=== PATIENT | female | born 1990 | race African-American/Black ===

== ENCOUNTER 2016-08-25 20:08 | Inpatient (IN) | payer SELFPAY ==
[~2016-08-25] VITALS: Ht 157.5 cm; Wt 60.8 kg
[~2016-08-25 20:08] MED LIST: DOXY100T PO; PERC7.5T13 PO; Z.0.NO CURRENT MEDS
[2016-08-25 20:10] VITALS: BP 141/57; PULSE 100; RESP 16; TEMP 99.3; O2SAT 98
[2016-08-25] MEDS ORDERED: SODIUM CHLOR 0.9% 1000 ML INJ 1,000 ML IV ONE ×2 (21:56→23:45)
[2016-08-25] MEDS ORDERED: ONDANSETRON HCL 4 MG/2 ML VIAL IV PUSH ONE (22:00)
[2016-08-25] MEDS ORDERED: HYDROmorphone HCL PF 1 MG/ML VIAL IVS ONE (22:00)
[2016-08-25 22:32] LABS: AUTOMATED NEUTROPHIL # 15.7 TH/MM3 (1.8-7.7); BASOPHIL % 0.2 % (0.0-2.0); HEMATOCRIT 33.9 % (35.0-46.0); LYMPH % 6.7 % (9.0-44.0); LYMPHOCYTE # 1.2 TH/MM3 (1.0-4.8); MEAN CELL VOLUME 74.4 FL (80.0-100.0); MEAN CORPUSCULAR HEMOGLOBIN 23.7 PG (27.0-34.0); MEAN CORPUSCULAR HGB CONC 31.9 % (32.0-36.0); MONO % 3.3 % (0.0-8.0); NEUT % 89.8 % (16.0-70.0); PLATELET COUNT 234 TH/MM3 (150-450); RED BLOOD COUNT 4.55 MIL/MM3 (4.00-5.30); WHITE BLOOD COUNT 17.5 TH/MM3 (4.0-11.0)
[2016-08-25 22:38] LABS: BLOOD, URINE MOD (NEG); COMMENT (UR) CULTURE INDICATED; CULTURE IF INDICATED CULTURE INDICATED; GLUCOSE,URINE NEG (NEG); KETONE, URINE TRACE mg/dL (NEG); MUCUS URINE FEW /lpf (OCC); NITRITE,URINE NEG (NEG); SQUAMOUS EPITHELIAL CELL URINE 3 /hpf (0-5); URINE COLOR YELLOW (YELLW/STRAW)
[2016-08-25 22:44] LABS: HEMO FLAGS AUTO DIFF
[2016-08-25] MEDS ORDERED: IOHEXOL 350 MG/ML 10 ML VIAL (for RAD DIAG) IV ONE (22:53)
[2016-08-25 23:04] LABS: ALT (GPT) 14 U/L (10-53); ANION GAP 9 MEQ/L (5-15); AST (GOT) 13 U/L (15-37); BICARBONATE 25.2 MEQ/L (21.0-32.0); BLOOD UREA NITROGEN 7 MG/DL (7-18); CHLORIDE 105 MEQ/L (98-107); GLOMERULAR FILTRATION RATE 109 ML/MIN (>89); POTASSIUM 3.5 MEQ/L (3.5-5.1); SODIUM (NA) 139 MEQ/L (136-145)
[2016-08-25 23:06] LABS: ALKALINE PHOSPHATASE 69 U/L (45-117); TOTAL BILIRUBIN ADULT 0.6 MG/DL (0.2-1.0)
[2016-08-25 23:14] LABS: PLATELET ESTIMATE SMEAR NORMAL (NORMAL); PLATELET MORPHOLOGY NORMAL (NORMAL); SCAN/DIFF AUTO DIFF CONFIRMED
--- NOTE | 2016-08-25 23:16 | RADRPT ---
EXAM DATE/TIME: 08/25/2016 22:49 [facility] COMPARISON: CT ABDOMEN & PELVIS W CONTRAST, February 05, 2010, 5:39. INDICATIONS : Genital and buttock pain radiating up back. IV CONTRAST: 91 cc Omnipaque 350 (iohexol) IV ORAL CONTRAST: No oral contrast ingested. RADIATION DOSE: 9.96 CTDIvol (mGy) MEDICAL HISTORY : None SURGICAL HISTORY : Bladder corrective surgery as baby. ENCOUNTER: Initial ACUITY: 1 day PAIN SCALE: 10/10 LOCATION: Bilateral lower quadrant TECHNIQUE: Volumetric scanning of the abdomen and pelvis was performed. Using automated exposure control and ad justment of the mA and/or kV according to patient size, radiation dose was kept as low as reasonably achievable to obtain optimal diagnostic quality images. FINDINGS: LOWER LUNGS: The visualized lower lungs are clear. LIVER: Homogeneous density without lesion. There is no dilation of the biliary tree. No calcified gallston es. SPLEEN: Normal size without lesion. PANCREAS: Within normal limits. KIDNEYS: Normal in size and shape. There is no mass, stone or hydronephrosis. ADRENAL GLANDS: Within normal limits. VASCULAR: There is no aortic aneurysm. BOWEL/MESENTERY: The stomach, small bowel, and colon demonstrate no acute abnormality. There is no free intraperitone al air or fluid. ABDOMINAL WALL: Within normal limits. RETROPERITONEUM: There is no lymphadenopathy. BLADDER: No wall thickening or mass. REPRODUCTIVE: The uterus is enlarged measuring 7.2 x 6.4 cm in oblique axial dimension. The endometrial cavity is prominent. Within the endometrial cavity, there is homogeneous intermediate density masslike area wh ich measures 3.5 x 2.9 cm. There is a moderate amount of free fluid in the cul-de-sac measuring up t o 2 cm in thickness. The adnexal vascular structures are prominent, but similar in appearance to a p rior CT scan 2009. INGUINAL: There is no lymphadenopathy or hernia. MUSCULOSKELETAL: Within normal limits for patient age. CONCLUSION: Abnormal appearance to the uterus with uterine enlargement and a greater than 3 cm homogeneous massli ke abnormality within the endometrial cavity. There is also moderate free fluid in the cul-de-sac. Terry Lopez MD on August 25, 2016 at 23:07 Board Certified Radiologist. This report was verified electronically.
[2016-08-25] MEDS ORDERED: cefTAZidime INJ 2,000 MG in SODIUM CHLORIDE 0.9% INJ 100 ML IV ONE (23:30)
[2016-08-25] MEDS ORDERED: DOXYCYCLINE INJ 100 MG in SODIUM CHLORIDE 0.9% INJ 100 ML IV ONE (23:30)
[2016-08-26] VITALS (7 sets, daily range): BP systolic 95–106; BP diastolic 51–66; PULSE 79–119; RESP 16–18; TEMP 96.1–98.9; O2SAT 98–100
[2016-08-26] MEDS ORDERED: ACETAMINOPHEN 325 MG TAB PO ONE (00:15)
[2016-08-26] MEDS ORDERED: HYDROmorphone HCL PF 1 MG/ML VIAL IV PUSH ONE (00:15)
--- NOTE | 2016-08-26 00:26 | HHI.HP ---
HPI Chief Complaint Abdominal and pelvic pain Date Seen: Aug 26, 2016 Travel History International Travel<30 Days: No Contact w/Intl Traveler<30Days: No Known Affected Area: No History of Present Illness HPI Patient is 25-year-old black female A1 who has developed 1 day onset of severe lower abdominal pain. States her last period started just several days ago with a 1 day of light bleeding and then it stopped, and was doing okay yesterday but today the pain began and is worsened throughout the day. Pain is worsened by moving around or laying flat on her back. She states she said possibly a fever at home but is noted certainly chills. She states that she had a case of PID in the past but this is much worse than that case. She denies nausea vomiting Para: 0 : 1 Last Menstrual Period: Aug 24, 2016 Miscarriage: 1 History Past Medical History Narrative Medical Patient states that she had a case of PID in the past. And that this problem caused her to be in the hospital for some time with for IV antibiotics Obstetric History Obstetric History She is been 1 time and miscarried in the first trimester with no D&C Family History Family History: Negative Social History Alcohol Use: No Tobacco Use: Yes Substance Abuse: No Allergies-Medications (Allergen,Severity, Reaction): Coded Allergies: Lactose (Unverified Allergy, Unknown, 08/25/16) Home Meds No Active Prescriptions or Reported Meds Review of Systems General / Constitutional: Fever, Chills Gastrointestinal: Abdominal Pain Physical Exam Narrative GENERAL: Well-nourished, well-developed patient. In moderate distress from pain SKIN: Warm and dry. HEAD: Normocephalic and atraumatic. EYES: No scleral icterus. No injection or drainage. ENT: No nasal drainage noted. Mucous membranes pink. Airway patent. NECK: Supple, trachea midline. No JVD. CARDIOVASCULAR: tachy without murmurs, gallops, or rubs. RESPIRATORY: Breath sounds equal bilaterally. No accessory muscle use. BREASTS: Bilateral exam showed no masses , no retractions, no nipple discharge. ABDOMEN/GI: Abdomen guarding with 3-4 + pain lower > upper quads with + rebound noted , bowel sounds present, no masses noted GENITOURINARY: External Genitalia: intact and normal in appearance BUS glands: [-] Cervix: + CMT uterus 3+ tender AF , adnexa 3+ tender + rebound no mass EXTREMITIES: No cyanosis or edema. BACK: Nontender without obvious deformity. No CVA tenderness. NEUROLOGICAL: Awake and alert. Motor and sensory grossly within normal limits. Five out of 5 muscle strength in all muscle groups. Normal speech. Data Data Orders Complete Blood Count With Diff (08/25/16 21:56) Comprehensive Metabolic Panel (08/25/16 21:56) Gc And Chlamydia Pcr (08/25/16 21:56) Wet Prep Profile (08/25/16 21:56) Urinalysis - C+S If Indicated (08/25/16 21:56) Iv Access Insert/Monitor (08/25/16 21:56) Ecg Monitoring (08/25/16 21:56) Sodium Chlor 0.9% 1000 Ml Inj (Ns 1000 M (08/25/16 21:56) Hydromorphone Pf Inj (Dilaudid Pf Inj) (08/25/16 22:00) Ed Urine Pregnancytest Poc (08/25/16 21:56) Lipase (08/25/16 21:56) Ondansetron Inj (Zofran Inj) (08/25/16 22:00) Lactic Acid (08/25/16 21:56) Ct Abd/Pel W Iv Contrast(Rout) (08/25/16 ) Urine Culture (08/25/16 22:10) Iohexol 350 Inj (Omnipaque 350 Inj) (08/25/16 22:53) Doxycycline Inj (Vibramycin Inj) (08/25/16 23:30) Ceftazidime Inj (Fortaz Inj) (08/25/16 23:30) Sodium Chlor 0.9% 1000 Ml Inj (Ns 1000 M (08/25/16 23:45) Admit Order (Ed Use Only) (08/26/16 00:01) Hydromorphone Pf Inj (Dilaudid Pf Inj) (08/26/16 00:15) Acetaminophen (Tylenol) (08/26/16 00:15) Labs Laboratory Tests Test 08/25/16 08/25/16 22:10 22:45 White Blood Count 17.5 Red Blood Count 4.55 Hemoglobin 10.8 Hematocrit 33.9 Mean Corpuscular Volume 74.4 Mean Corpuscular Hemoglobin 23.7 Mean Corpuscular Hemoglobin 31.9 Concent Red Cell Distribution Width 18.0 Platelet Count 234 Mean Platelet Volume 8.8 Neutrophils (%) (Auto) 89.8 Lymphocytes (%) (Auto) 6.7 Monocytes (%) (Auto) 3.3 Eosinophils (%) (Auto) 0.0 Basophils (%) (Auto) 0.2 Neutrophils # (Auto) 15.7 Lymphocytes # (Auto) 1.2 Monocytes # (Auto) 0.6 Eosinophils # (Auto) 0.0 Basophils # (Auto) 0.0 CBC Comment AUTO DIFF Differential Comment AUTO DIFF CONFIRMED Platelet Estimate NORMAL Platelet Morphology Comment NORMAL Urine Color YELLOW Urine Turbidity CLEAR Urine pH 8.0 Urine Specific [place] 1.019 Urine Protein NEG Urine Glucose (UA) NEG Urine Ketones TRACE Urine Occult Blood MOD Urine Nitrite NEG Urine Bilirubin NEG Urine Urobilinogen LESS THAN 2.0 Urine Leukocyte Esterase LARGE Urine RBC 4 Urine WBC 21 Urine Squamous Epithelial 3 Cells Urine Mucus FEW Microscopic Urinalysis Comment CULTURE INDICATED Sodium Level 139 Potassium Level 3.5 Chloride Level 105 Carbon Dioxide Level 25.2 Anion Gap 9 Blood Urea Nitrogen 7 Creatinine 0.78 Estimat Glomerular Filtration 109 Rate Random Glucose 109 Lactic Acid Level 0.9 Calcium Level 8.7 Total Bilirubin 0.6 Aspartate Amino Transf 13 (AST/SGOT) Alanine Aminotransferase 14 (ALT/SGPT) Alkaline Phosphatase 69 Total Protein 7.6 Albumin 3.7 Lipase 75 Clue Cells (Wet Prep) PRESENT Vaginal Trichomonas (Wet Prep) NONE SEEN Vaginal Yeast (Wet Prep) NONE SEEN Date/Time Procedure Status Source Growth 08/25/16 22:10 Urine Culture Received Urine Clean Catch Pending CT scan --enlarged uterus with internal echo , some free fluid in pelvis Assessment/Plan Assessment and Plan 25-year-old black female with pelvic inflammatory disease, severe pelvic abdominal pain Plan to begin the patient on IV antibiotic therapy[ampicillin gentamicin and clindamycin] Pain medication when necessary, and plan to continue inpatient therapy until pain is significantly improved that she's been afebrile for 24 hours Dave aMnrique II, MD Aug 26, 2016 00:26
[2016-08-26] MEDS ORDERED: Gentamicin Consult Pharmacy 1 EA XX SCH (00:30)
[2016-08-26] MEDS ORDERED: SODIUM CHLORIDE 0.9% FLUSH 5 ML FLUSH FLUSH PRN ×2 (00:30→00:45)
[2016-08-26] MEDS ORDERED: ACETAMINOPHEN 325 MG TAB PO PRN ×2 (00:30→00:45)
[2016-08-26] MEDS ORDERED: SODIUM CHLOR 0.45% 1000 ML INJ 1,000 ML IV SCH (00:40)
--- NOTE | 2016-08-26 00:44 | PD ---
HPI Chief Complaint: Abdominal pain Time Seen by Provider: 21:38 Travel History International Travel<30 days: No Contact w/Intl Traveler<30days: No Traveled to known affect area: No History of Present Illness HPI 25-year-old female arrives complaining of pain in the vagina, back, abdomen generally which is severe and has been present for about 12 hours or so. Onset woke her up from sleep during a morning nap. She tried taking a bath which did not help. The pain is constant. Possible subjective fever is reported. She denies similar prior events. She denies vomiting. Last menstruation is evidently right now however she is bleeding much less then typical for her. Urination is painful. She denies significant vaginal discharge. PFSH Past Medical History ADHD: No Cardiovascular Problems: No Diabetes: No Diminished Hearing: No Genitourinary: No Musculoskeletal: No Neurologic: No Psychiatric: Yes (HX INPT STAYS) Respiratory: No Immunizations Current: Yes Migraines: No Seizures: No Thyroid Disease: No Ulcer: No Influenza Vaccination: No ?: Not LMP: 08/23/16 : 1 Para: 0 Past Surgical History Appendectomy: No Cholecystectomy: No Genitourinary Surgery: Yes (CORRECTIVE BLADDER SURGERY BABY) Other Surgery: No Family History Family History: Negative Social History Alcohol Use: No Tobacco Use: Yes Substance Use: No Allergies-Medications (Allergen,Severity, Reaction): Coded Allergies: Lactose (Unverified Allergy, Unknown, 08/25/16) Reported Meds & Prescriptions Reported Meds & Active Scripts Active No Active Prescriptions or Reported Medications Review of Systems Except as stated in HPI: all other systems reviewed are Neg Genitourinary: Positive: Pelvic Pain Physical Exam Narrative GENERAL: 25-year-old female mild to moderate distress secondary to pain and/or fever SKIN: Warm and dry. HEAD: Atraumatic. Normocephalic. EYES: Pupils equal and round. No scleral icterus. No injection or drainage. ENT: No nasal bleeding or discharge. Mucous membranes pink and moist. NECK: Trachea midline. No JVD. CARDIOVASCULAR: Regular rate and rhythm. No murmur appreciated. RESPIRATORY: No accessory muscle use. Clear to auscultation. Breath sounds equal bilaterally. GASTROINTESTINAL: Rebound tenderness present. Tenderness to palpation suprapubic abdomen GENITOURINARY: Exquisite tenderness to palpation of the cervix. Within the vaginal vault there is scant brownish reddish discharge. MUSCULOSKELETAL: No obvious deformities. No clubbing. No cyanosis. No edema. NEUROLOGICAL: Awake and alert. No obvious cranial nerve deficits. Motor grossly within normal limits. Normal speech. PSYCHIATRIC: Appropriate mood and affect; insight and judgment normal. Data Data Last Documented VS Vital Signs Date Time Temp Pulse Resp B/P Pulse Ox O2 Delivery O2 Flow Rate FiO2 08/25/16 21:44 100 16 08/25/16 20:10 99.3 141/57 98 Orders Complete Blood Count With Diff (08/25/16 21:56) Comprehensive Metabolic Panel (08/25/16 21:56) Gc And Chlamydia Pcr (08/25/16 21:56) Wet Prep Profile (08/25/16 21:56) Urinalysis - C+S If Indicated (08/25/16 21:56) Iv Access Insert/Monitor (08/25/16 21:56) Ecg Monitoring (08/25/16 21:56) Sodium Chlor 0.9% 1000 Ml Inj (Ns 1000 M (08/25/16 21:56) Hydromorphone Pf Inj (Dilaudid Pf Inj) (08/25/16 22:00) Ed Urine Pregnancytest Poc (08/25/16 21:56) Lipase (08/25/16 21:56) Ondansetron Inj (Zofran Inj) (08/25/16 22:00) Lactic Acid (08/25/16 21:56) Ct Abd/Pel W Iv Contrast(Rout) (08/25/16 ) Urine Culture (08/25/16 22:10) Iohexol 350 Inj (Omnipaque 350 Inj) (08/25/16 22:53) Doxycycline Inj (Vibramycin Inj) (08/25/16 23:30) Ceftazidime Inj (Fortaz Inj) (08/25/16 23:30) Sodium Chlor 0.9% 1000 Ml Inj (Ns 1000 M (08/25/16 23:45) Admit Order (Ed Use Only) (08/26/16 00:01) Hydromorphone Pf Inj (Dilaudid Pf Inj) (08/26/16 00:15) Acetaminophen (Tylenol) (08/26/16 00:15) Labs Laboratory Tests Test 08/25/16 08/25/16 22:10 22:45 White Blood Count 17.5 TH/MM3 Red Blood Count 4.55 MIL/MM3 Hemoglobin 10.8 GM/DL Hematocrit 33.9 % Mean Corpuscular Volume 74.4 FL Mean Corpuscular Hemoglobin 23.7 PG Mean Corpuscular Hemoglobin 31.9 % Concent Red Cell Distribution Width 18.0 % Platelet Count 234 TH/MM3 Mean Platelet Volume 8.8 FL Neutrophils (%) (Auto) 89.8 % Lymphocytes (%) (Auto) 6.7 % Monocytes (%) (Auto) 3.3 % Eosinophils (%) (Auto) 0.0 % Basophils (%) (Auto) 0.2 % Neutrophils # (Auto) 15.7 TH/MM3 Lymphocytes # (Auto) 1.2 TH/MM3 Monocytes # (Auto) 0.6 TH/MM3 Eosinophils # (Auto) 0.0 TH/MM3 Basophils # (Auto) 0.0 TH/MM3 CBC Comment AUTO DIFF Differential Comment AUTO DIFF CONFIRMED Platelet Estimate NORMAL Platelet Morphology Comment NORMAL Urine Color YELLOW Urine Turbidity CLEAR Urine pH 8.0 Urine Specific [place] 1.019 Urine Protein NEG mg/dL Urine Glucose (UA) NEG mg/dL Urine Ketones TRACE mg/dL Urine Occult Blood MOD Urine Nitrite NEG Urine Bilirubin NEG Urine Urobilinogen LESS THAN 2.0 MG/DL Urine Leukocyte Esterase LARGE Urine RBC 4 /hpf Urine WBC 21 /hpf Urine Squamous Epithelial 3 /hpf Cells Urine Mucus FEW /lpf Microscopic Urinalysis Comment CULTURE INDICATED Sodium Level 139 MEQ/L Potassium Level 3.5 MEQ/L Chloride Level 105 MEQ/L Carbon Dioxide Level 25.2 MEQ/L Anion Gap 9 MEQ/L Blood Urea Nitrogen 7 MG/DL Creatinine 0.78 MG/DL Estimat Glomerular Filtration 109 ML/MIN Rate Random Glucose 109 MG/DL Lactic Acid Level 0.9 mmol/L Calcium Level 8.7 MG/DL Total Bilirubin 0.6 MG/DL Aspartate Amino Transf 13 U/L (AST/SGOT) Alanine Aminotransferase 14 U/L (ALT/SGPT) Alkaline Phosphatase 69 U/L Total Protein 7.6 GM/DL Albumin 3.7 GM/DL Lipase 75 U/L Clue Cells (Wet Prep) PRESENT Vaginal Trichomonas (Wet Prep) NONE SEEN Vaginal Yeast (Wet Prep) NONE SEEN Chlamydia trachomatis DNA NOT DETECTED (PCR) Neisseria gonorrhoeae DNA DETECTED (PCR) MDM Medical Decision Making Medical Screen Exam Complete: Yes Emergency Medical Condition: Yes Medical Record Reviewed: Yes Differential Diagnosis IUP, UTI, ectopic , ov torsion, appendicitis, TOA, cervicitis, BV, Trichomoniasis, ov cyst, hernia, mittelschmerz, pain from menstruation, pelvic inflammatory disease Narrative Course CBC & BMP Diagram 08/25/16 22:10 Lactic acid 0.9 LFTs normal Lipase normal Urinalysis consistent with UTI Wet prep positive for bacterial vaginosis Neisseria gonorrhea PCR detected The patient has received doxycycline and Ceftazidime. She'll be admitted for IV fluids pain control and additional IV antibiotics for PID. Case discussed with Dr. Manrique of obstetrics service. Critical Care Narrative Aggregate critical care time was 35 minutes. Time to perform other separately billable procedures was not included in the critical care time. My time did not include minutes spent treating any other patients simultaneously or on activities that did not directly contribute to the patient's treatment. The services I provided to this patient were to treat and/or prevent clinically significant deterioration that could result in: Septic Shock, loss of reproductive organs I provided critical care services requiring my management, as noted below: Chart data review, documentation time, medication orders and management, vital sign assessments/reviewing monitor data, ordering and reviewing lab tests, ordering and interpreting/reviewing x-rays and diagnostic studies, care of the patient and discussion of the patient with the admitting physicians. Sepsis Criteria SIRS Criteria (2 or more): Heart rate over 90, RR > 20 or PaCO2 < 32, WBC > 27307, < 4000 or > 10% bands Sepsis Criteria (SIRS+source): Infect source susp/known Diagnosis Primary Impression: Sepsis Qualified Code: A41.9 - Sepsis, due to unspecified organism Additional Impression: Pelvic inflammatory disease (PID) Admitting Information Admitting Physician Requests: Admit Scripts No Active Prescriptions or Reported Meds Zach Moncada MD Aug 26, 2016 00:44
[2016-08-26] MEDS ORDERED: ACETAMINOPHEN/HYDROcodone 325 MG/5 MG TAB PO PRN (00:45)
[2016-08-26] MEDS ORDERED: MORPHINE SULFATE 4 MG/ML INJ IV PRN (00:45)
[2016-08-26] MEDS ORDERED: ONDANSETRON HCL 4 MG/2 ML VIAL IV PRN (00:45)
[2016-08-26 00:55] LABS: CHLAMYDIA PCR NOT DETECTED (NOT DETECT); NEISSERIA PCR DETECTED (NOT DETECT)
[2016-08-26] MEDS ORDERED: AMPICILLIN INJ 2,000 MG in SODIUM CHLORIDE 0.9% INJ 100 ML IV SCH (01:00)
[2016-08-26] MEDS: GENTAMICIN INJ 325 MG in SODIUM CHLORIDE 0.9% INJ 100 ML IV SCH (01:28)
[2016-08-26] MEDS: SODIUM CHLOR 0.45% 1000 ML INJ 1,000 ML IV SCH ×2 (01:28→10:25)
[2016-08-26] MEDS: CLINDAMYCIN INJ 900 MG in SODIUM CHLORIDE 0.9% INJ 100 ML IV SCH ×3 (02:44→17:51)
[2016-08-26] MEDS ORDERED: GENTAMICIN INJ 100 MG in SODIUM CHLORIDE 0.9% INJ 100 ML IV ONE (02:45)
[2016-08-26] MEDS ORDERED: CLINDAMYCIN INJ 900 MG in SODIUM CHLORIDE 0.9% INJ 100 ML IV SCH (02:45)
[2016-08-26] MEDS: MORPHINE SULFATE 4 MG/ML INJ IV PRN ×3 (02:50→10:25)
[2016-08-26] MEDS: ONDANSETRON HCL 4 MG/2 ML VIAL IV PRN ×2 (02:51→10:53)
[2016-08-26] MEDS: AMPICILLIN INJ 2,000 MG in SODIUM CHLORIDE 0.9% INJ 100 ML IV SCH ×4 (04:14→23:21)
[2016-08-26] MEDS ORDERED: SODIUM CHLORIDE 0.9% FLUSH 5 ML FLUSH FLUSH SCH (09:00)
[2016-08-26] MEDS: SODIUM CHLORIDE 0.9% FLUSH 5 ML FLUSH FLUSH SCH (10:24)
[2016-08-26] MEDS: ACETAMINOPHEN/HYDROcodone 325 MG/5 MG TAB PO PRN ×3 (14:00→22:48)
--- NOTE | 2016-08-26 23:49 | RADRPT ---
EXAM DATE/TIME: 08/26/2016 22:07 [facility] COMPARISON: CT ABDOMEN & PELVIS W CONTRAST, August 25, 2016, 22:49. INDICATIONS : Pelvic pain. MEDICAL HISTORY : . Miscarriage. SURGICAL HISTORY : Bladder surgery as a baby. ENCOUNTER: Initial ACUITY: 1 day PAIN SCORE: 9/10 LOCATION: Bilateral pelvis MEASUREMENTS: UTERUS: 9.8 x 6.0 x 5.9 cm ENDOMETRIAL STRIPE: 9 mm RIGHT OVARY: 5.7 x 2.4 x 3.0 cm LEFT OVARY: 4.8 x 3.1 x 2.6 cm FINDINGS: UTERUS: The uterus has a homogeneous echogenicity throughout the myometrium. The cervix appears to be mildly prominent at 5.2 cm. The uterus is retroflexed in position. There appears to be a hyperechoic rounded density within the endometrial cavity measuring 3.3 x 2.7 cm. RIGHT OVARY: Ovary contains no mass or significant cystic lesion. A few tiny follicular cysts. LEFT OVARY: Ovary contains no mass or significant cystic lesion. A few tiny follicular cysts. MISCELLANEOUS: No free fluid. CONCLUSION: 1. Abnormal appearance of the endometrial cavity with a hyperechoic rounded area within the endometri al cavity measuring 3.3 x 2.7 cm. D&C may be worthy of consideration. 2. Retroverted uterus with mildly prominent cervix.. Shree Solorzano MD on August 26, 2016 at 23:44 Board Certified Radiologist. This report was verified electronically.
[2016-08-27] VITALS: BP 99/54; PULSE 81; RESP 18; TEMP 96.8; O2SAT 99
[2016-08-27] MEDS: MORPHINE SULFATE 4 MG/ML INJ IV PRN ×2 (00:13→11:02)
[2016-08-27] MEDS: SODIUM CHLORIDE 0.9% FLUSH 5 ML FLUSH FLUSH SCH ×3 (00:13→22:00)
[2016-08-27] MEDS: GENTAMICIN INJ 325 MG in SODIUM CHLORIDE 0.9% INJ 100 ML IV SCH (03:02)
[2016-08-27] MEDS: CLINDAMYCIN INJ 900 MG in SODIUM CHLORIDE 0.9% INJ 100 ML IV SCH ×3 (03:30→17:54)
[2016-08-27 04:00] VITALS: BP 101/50; PULSE 75; RESP 18; TEMP 97.3; O2SAT 100
[2016-08-27] MEDS: AMPICILLIN INJ 2,000 MG in SODIUM CHLORIDE 0.9% INJ 100 ML IV SCH ×4 (04:00→21:07)
[2016-08-27] MEDS: SODIUM CHLOR 0.45% 1000 ML INJ 1,000 ML IV SCH ×2 (06:26→16:20)
[2016-08-27 08:00] VITALS: BP 101/58; PULSE 74; RESP 20; TEMP 97.6; O2SAT 100
[2016-08-27] MEDS: ONDANSETRON HCL 4 MG/2 ML VIAL IV PRN (08:49)
[2016-08-27 08:50] LABS: AUTOMATED NEUTROPHIL # 11.5 TH/MM3 (1.8-7.7); BASOPHIL % 0.2 % (0.0-2.0); EOSINOPHIL # 0.1 TH/MM3 (0-0.4); HEMATOCRIT 29.4 % (35.0-46.0); LYMPHOCYTE # 1.5 TH/MM3 (1.0-4.8); MEAN CELL VOLUME 75.1 FL (80.0-100.0); MEAN CORPUSCULAR HEMOGLOBIN 23.6 PG (27.0-34.0); MEAN CORPUSCULAR HGB CONC 31.4 % (32.0-36.0); MONO % 5.8 % (0.0-8.0); PLATELET COUNT 193 TH/MM3 (150-450); RED BLOOD COUNT 3.91 MIL/MM3 (4.00-5.30)
[2016-08-27] MEDS: ACETAMINOPHEN/HYDROcodone 325 MG/5 MG TAB PO PRN (08:50)
[2016-08-27 08:53] LABS: HEMO FLAGS AUTO DIFF
[2016-08-27 09:39] LABS: ACANTHOCYTES OCC (NORMAL); SCAN/DIFF AUTO DIFF CONFIRMED
--- NOTE | 2016-08-27 09:44 | HHI.FPPN ---
Subjective Remarks 25 year old female with with lower abdominal pain. She was found to have gonorrhea and bacterial vaginosis, with suspected pelvic inflammatory disease. This morning she continues to have significant lower abdominal pain, 8/10 without pain medication and 5/10 after pain medication. It is located in the lower left, lower right, and lower mid-abdomen. She has nausea but no vomiting. She feels hot but has been afebrile. She reports no vaginal bleeding or discharge. She has poor appetite. No other events overnight. She reports mild improvement overall since admission. (Nate Pacheco MD R2) Objective Vitals Vital Signs Date Time Temp Pulse Resp B/P Pulse Ox O2 Delivery O2 Flow Rate FiO2 08/27/16 08:00 97.6 74 20 101/58 100 08/27/16 04:00 97.3 75 18 101/50 100 08/27/16 00:00 96.8 81 18 99/54 99 08/26/16 22:19 96.9 81 18 95/52 98 08/26/16 16:00 96.1 79 18 99/51 99 08/26/16 12:00 97.6 90 18 106/66 99 08/26/16 10:30 14 08/26/16 09:46 98.7 66 18 98/60 98 08/26/16 09:40 98.9 96 16 99/57 98 I/O 08/26/16 08/26/16 08/26/16 08/27/16 08/27/16 08/27/16 07:00 15:00 23:00 07:00 15:00 23:00 Intake Total 480 ml 240 ml Balance 480 ml 240 ml Intake Oral 480 ml 240 ml # Voids 1 2 (Nate Pacheco MD R2) Result Diagram: 08/28/16 0800 08/28/16 0800 Imaging Last 72 hours Impressions Pelvis Ultrasound 08/26/16 0000 Signed Impressions: Service Date/Time: Friday, August 26, 2016 22:07 - CONCLUSION: 1. Abnormal appearance of the endometrial cavity with a hyperechoic rounded area within the endometrial cavity measuring 3.3 x 2.7 cm. D&C may be worthy of consideration. 2. Retroverted uterus with mildly prominent cervix.. Shree Solorzano MD Abdomen/Pelvis CT 08/25/16 0000 Signed Impressions: Service Date/Time: Thursday, August 25, 2016 22:49 - CONCLUSION: Abnormal appearance to the uterus with uterine enlargement and a greater than 3 cm homogeneous masslike abnormality within the endometrial cavity. There is also moderate free fluid in the cul-de-sac. Terry Lopez MD Objective Remarks GENERAL: Well-nourished, well-developed patient. In moderate distress from pain SKIN: Warm and dry. HEAD: Normocephalic and atraumatic. EYES: No scleral icterus. No injection or drainage. ENT: No nasal drainage noted. Mucous membranes pink. Airway patent. NECK: Supple, trachea midline. No JVD. CARDIOVASCULAR: tachy without murmurs, gallops, or rubs. RESPIRATORY: Breath sounds equal bilaterally. No accessory muscle use. BREASTS: Bilateral exam showed no masses , no retractions, no nipple discharge. ABDOMEN/GI: Pain on palpation of the lower mid, lower left, and lower right quadrants, no rebound tenderness, voluntary guarding, no involuntary guarding. EXTREMITIES: No cyanosis or edema. BACK: Nontender without obvious deformity. No CVA tenderness. NEUROLOGICAL: Awake and alert. (Nate Pacheco MD R2) A/P Assessment and Plan 25-year-old black female with pelvic inflammatory disease, gonorrhea, bacterial vaginosis. Discharge Planning Plan for discharge when pain reasonably controlled and can tolerate PO antibiotics. (Nate Pacheco MD R2) Attending Attestation Patient seen and evaluated with the resident under direct supervision, I agree with the assessment and plan. (Jared Galeas MD) Problem List: (1) Pelvic inflammatory disease (PID) Status: Acute Plan: Gonorrhea, bacterial vaginosis, lower abdominal pain. US showing likely endometrial polyp. Likely this is early pelvic inflammatory disease. White count 14 from 17.5, afebrile overnight. Urine test negative. - Continue IV antibiotics: ampicillin, clindamycin, gentamicin started 08/26. - Pain management: Ttylenol for mild pain or fever, Vincent 5/325 for pain 6-10, morphine 4 mg for breatkthrough pain. - Nausea: ondansetron PRN. - Continue IVF, monitor vital signs, encourage PO hydration. - Education on safe sex practices, need for partners to be treated. - Transition to oral antibiotics when tolerating PO well, and improvement in clinical symptoms. (2) Bacterial vaginosis Status: Acute (3) Gonorrhea Status: Acute (Nate Pacheco MD R2) Attestation Patient seen and evaluated with the resident under direct supervision, I agree with the assessment and plan. (Jared Galeas MD) Nate Pacheco MD R2 Aug 27, 2016 09:44 Jared Galeas MD Aug 28, 2016 17:51
[2016-08-27 12:00] VITALS: BP 111/68; PULSE 84; RESP 21; TEMP 97.3; O2SAT 100
[2016-08-27] MEDS: ACETAMINOPHEN/HYDROcodone 325 MG/10 MG TAB PO PRN ×2 (13:22→17:54)
[2016-08-27 16:00] VITALS: BP 109/56; PULSE 83; RESP 20; TEMP 96.5; O2SAT 99
[2016-08-27 20:00] VITALS: BP 110/67; PULSE 85; RESP 16; TEMP 97.2; O2SAT 98
[2016-08-28 00:30] VITALS: BP 110/70; PULSE 80; RESP 17; TEMP 98.1; O2SAT 99
[2016-08-28] MEDS: ACETAMINOPHEN/HYDROcodone 325 MG/10 MG TAB PO PRN ×4 (00:41→17:07)
[2016-08-28] MEDS: GENTAMICIN INJ 325 MG in SODIUM CHLORIDE 0.9% INJ 100 ML IV SCH (02:12)
[2016-08-28] MEDS: CLINDAMYCIN INJ 900 MG in SODIUM CHLORIDE 0.9% INJ 100 ML IV SCH (02:50)
[2016-08-28] MEDS: AMPICILLIN INJ 2,000 MG in SODIUM CHLORIDE 0.9% INJ 100 ML IV SCH (04:00)
[2016-08-28 04:20] VITALS: BP 115/65; PULSE 80; RESP 17; TEMP 97; O2SAT 99
[2016-08-28] MEDS: ONDANSETRON HCL 4 MG/2 ML VIAL IV PRN (07:03)
[2016-08-28] MEDS: MORPHINE SULFATE 4 MG/ML INJ IV PRN (07:04)
[2016-08-28 08:00] VITALS: BP 120/60; PULSE 80; RESP 21; TEMP 97.8; O2SAT 100
--- NOTE | 2016-08-28 08:21 | HHI.FPPN ---
Subjective Remarks Patient seen and examined this morning. States she has worsened abdominal pain. Was better controlled yesterday, but worsened overnight. Is diffuse abdominal pain. Has pain with standing and any movement in bed. She has mainly been drinking liquids and tolerating it well. No nausea/vomiting. Started her period yesterday, states it is looser than normal. Denies fever/chills. Denies chest pain, SOB, leg pain. (Darrell Moser MD R1) Objective Vitals Vital Signs Date Time Temp Pulse Resp B/P Pulse Ox O2 Delivery O2 Flow Rate FiO2 08/28/16 04:20 97.0 80 17 115/65 99 08/28/16 00:30 98.1 80 17 110/70 99 08/27/16 20:00 97.2 85 16 110/67 98 08/27/16 16:00 96.5 83 20 109/56 99 08/27/16 12:00 97.3 84 21 111/68 100 I/O 08/27/16 08/27/16 08/27/16 08/28/16 08/28/16 08/28/16 07:00 15:00 23:00 07:00 15:00 23:00 Intake Total 650 ml 700 ml Balance 650 ml 700 ml Intake Oral 650 ml 700 ml # Voids 2 2 0 2 # Bowel Movements 0 0 0 (Darrell Moser MD R1) Result Diagram: 08/28/16 0800 08/28/16 0800 Objective Remarks GENERAL: Well-nourished, well-developed patient. In moderate distress from pain SKIN: Warm and dry. NECK: Supple, trachea midline. No JVD. CARDIOVASCULAR: tachy without murmurs, gallops, or rubs. RESPIRATORY: Breath sounds equal bilaterally. No accessory muscle use. ABDOMEN/GI: Diffuse tender to palpation, no rebound tenderness, voluntary guarding, no involuntary guarding. BS+ EXTREMITIES: No cyanosis or edema. BACK: Nontender without obvious deformity. No CVA tenderness. NEUROLOGICAL: Awake and alert. (Darrell Moser MD R1) A/P Assessment and Plan 25-year-old black female with pelvic inflammatory disease, gonorrhea, bacterial vaginosis. Discharge Planning Plan for discharge when pain reasonably controlled and can tolerate PO antibiotics. (Darrell Moser MD R1) Problem List: (1) Pelvic inflammatory disease (PID) Status: Acute Plan: Gonorrhea, bacterial vaginosis, lower abdominal pain. US showing likely endometrial polyp. Likely this is early pelvic inflammatory disease. CBC pending this morning, afebrile overnight. Urine test negative. - Will switch antibiotics: 1 dose 250mg Rocephin, Doxycycline 100mg BID - Pain management: Ttylenol for mild pain or fever, Bomont 5/325 for pain 6-10, morphine 4 mg for breakthrough pain. - Add ibuprofen 400mg q6H - Nausea: ondansetron PRN. - Continue IVF, monitor vital signs, encourage PO hydration. - Education on safe sex practices, need for partners to be treated. - Transition to oral antibiotics when tolerating PO well, and improvement in clinical symptoms. (2) Bacterial vaginosis Status: Acute (3) Gonorrhea Status: Acute (Darrell Moser MD R1) Attestation Patient seen and examined under direct supervision, I agreed with the assessment and plan. (Jared Galeas MD) Darrell Moser MD R1 Aug 28, 2016 08:21 Jared Galeas MD Aug 28, 2016 17:53
[2016-08-28 08:27] LABS: AUTOMATED NEUTROPHIL # 5.2 TH/MM3 (1.8-7.7); BASOPHIL % 0.3 % (0.0-2.0); EOSINOPHIL # 0.1 TH/MM3 (0-0.4); EOSINOPHIL % 1.4 % (0.0-4.0); HEMATOCRIT 31.2 % (35.0-46.0); LYMPH % 18.5 % (9.0-44.0); LYMPHOCYTE # 1.3 TH/MM3 (1.0-4.8); MEAN CELL VOLUME 74.8 FL (80.0-100.0); MEAN CORPUSCULAR HEMOGLOBIN 23.8 PG (27.0-34.0); MEAN CORPUSCULAR HGB CONC 31.8 % (32.0-36.0); MONO % 6.1 % (0.0-8.0); NEUT % 73.7 % (16.0-70.0); PLATELET COUNT 204 TH/MM3 (150-450); RED BLOOD COUNT 4.17 MIL/MM3 (4.00-5.30); RED CELL DISTRIBUTION WIDTH 17.9 % (11.6-17.2)
[2016-08-28 08:28] LABS: HEMO FLAGS AUTO DIFF
[2016-08-28] MEDS: SODIUM CHLORIDE 0.9% FLUSH 5 ML FLUSH FLUSH SCH (08:29)
[2016-08-28] MEDS ORDERED: cefTRIAXone 250 MG VIAL IM ONE (09:15)
[2016-08-28 09:21] LABS: ACANTHOCYTES OCC (NORMAL); KERATOCYTES OCC (NORMAL); OVALOCYTES 1+ (NORMAL)
[2016-08-28 09:22] LABS: PLATELET ESTIMATE SMEAR NORMAL (NORMAL); PLATELET MORPHOLOGY NORMAL (NORMAL); SCAN/DIFF AUTO DIFF CONFIRMED
[2016-08-28] MEDS ORDERED: DOXYCYCLINE HYCLATE 100 MG CAP PO SCH (10:00)
[2016-08-28] MEDS: IBUPROFEN 400 MG TAB PO SCH ×2 (11:58→15:00)
[2016-08-28 12:00] VITALS: BP 101/60; PULSE 79; RESP 20; TEMP 97.1; O2SAT 99
[2016-08-28] MEDS: SODIUM CHLOR 0.45% 1000 ML INJ 1,000 ML IV SCH (12:26)
--- NOTE | 2016-08-28 15:05 | HHI.DCPOC ---
Discharge Care Plan Diagnosis: (1) Pelvic inflammatory disease (PID) (2) Bacterial vaginosis (3) Gonorrhea Goals to Promote Your Health * To prevent worsening of your condition and complications * To maintain your health at the optimal level Directions to Meet Your Goals Take your medications as prescribed Follow your dietary instruction Follow activity as directed Keep your appointments as scheduled Take your immunizations and boosters as scheduled If your symptoms worsen call your PCP, if no PCP go to Urgent Care Center or Emergency Room Smoking is Dangerous to Your Health. Avoid second hand smoke Call the 24-hour hour crisis hotline for domestic abuse at Attestation Patient seen and evaluated with the resident under direct supervision, I agree with the assessment and plan. Nate Pacheco MD R2 Aug 28, 2016 15:05 Jared Galeas MD Aug 28, 2016 17:56
[2016-08-28] MEDS ORDERED: DOXY100C PO (15:07)
[2016-08-28] MEDS ORDERED: HYDR-3583 PO (15:09)
[2016-08-28] MEDS ORDERED: METR-1 PO (15:12)
[2016-08-28 16:00] VITALS: BP 102/56; PULSE 76; RESP 20; TEMP 97.4; O2SAT 100
== END 2016-08-28 17:55 | disposition home or self-care (01) | DRG 759 ==
LOC: NEPE 20:08 → NEDA 08-26 00:04 → NEDH 08-26 05:30 → N05A 08-26 09:23
PROVIDERS: ADMIT Obstetrics & Gynecology Maternal & Fetal Medicine; ATTEND Obstetrics & Gynecology Maternal & Fetal Medicine
DX: A54.24 Gonococcal female pelvic inflammatory disease (principal); N76.0 Acute vaginitis; N84.0 Polyp of corpus uteri; F17.210 Nicotine dependence, cigarettes, uncomplicated
CPT/HCPCS: 74177; 76830; 76856; 76937; 80053; 81001; 82565; 83605; 83690; 84703; 85025; 87086; 87210; 87491; 87591; 96361; 96365; 96366; 96375; J0290; J0696; J0713; J1170; J1580; J2270; J2405; J7030; Q9967

== ENCOUNTER 2017-11-29 13:27 | Emergency (ER) | payer SELFPAY ==
[~2017-11-29] VITALS: Ht 157.5 cm; Wt 60.0 kg
[~2017-11-29 13:27] MED LIST changes: +DOXY100C PO; -DOXY100T PO; +HYDR-3583 PO; +METR-1 PO; -PERC7.5T13 PO; -Z.0.NO CURRENT MEDS
[2017-11-29 13:31] VITALS: BP 127/69; PULSE 76; RESP 16; TEMP 98.4; O2SAT 100
--- NOTE | 2017-11-29 13:56 | PD ---
HPI Chief Complaint: Back/ Neck Pain or Injury Time Seen by Provider: 13:36 Travel History International Travel<30 days: No Contact w/Intl Traveler<30days: No Traveled to known affect area: No History of Present Illness HPI Is a 27-year-old woman who presents to the emergency department complaining of left-sided low back pain rating and but in the leg. Symptoms been ongoing for the past couple days, constant, worse with any movement. History Past Medical History Medical History: Denies Significant Hx LMP: 11/03/17 : 1 Para: 0 Social History Alcohol Use: Yes (RARE) Tobacco Use: Yes (1/2 PPD ) Allergies-Medications (Allergen,Severity, Reaction): Coded Allergies: lactose (Unverified Allergy, Unknown, 03/19/17) Reported Meds & Prescriptions Reported Meds & Active Scripts Active Review of Systems Except as stated in HPI: all other systems reviewed are Neg Physical Exam Narrative GENERAL: Well-appearing 27-year-old woman, no acute distress. SKIN: Warm and dry. CARDIOVASCULAR: Warm and well perfused. RESPIRATORY: Normal rate and effort. MUSCULOSKELETAL: Left-sided paraspinous muscle tenderness. Radiates into the left leg and buttock. Worse with certain movements. Negative straight leg raise. Strength full. NEUROLOGICAL: Awake and alert. No gross deficits. Data Data Last Documented VS Vital Signs Date Time Temp Pulse Resp B/P (MAP) Pulse Ox O2 Delivery O2 Flow Rate FiO2 11/29/17 13:31 98.4 76 16 127/69 (88) 100 Orders Orders Urinalysis - C+S If Indicated (11/29/17 13:36) Ed Urine Pregnancytest Poc (11/29/17 13:36) Naproxen (Naprosyn) (11/29/17 14:00) MDM Medical Decision Making Medical Screen Exam Complete: Yes Emergency Medical Condition: Yes Differential Diagnosis Leg pain, sciatica, radicular apathy, other Narrative Course Medical decision making Is a 27-year-old woman presents emerged from complaining of left-sided leg pain. Looks well. This is likely radicular muscular skeletal. 12. Recommend supportive treatment, muscle relaxers. Diagnosis Primary Impression: Back pain Qualified Codes: M54.5 - Low back pain Additional Instructions: Follow-up with her primary doctor in the next 2-4 days if symptoms persist. Take naproxen as needed for pain. Take Flexeril sparingly if needed at night for muscle spasms. Med/Other Pt SpecificInfo: No Change to Meds Scripts Cyclobenzaprine (Flexeril) 10 Mg Tab 10 MG PO TID Y for MUSCLE SPASM, #12 TAB 0 Refills Prov: Lan Pérez MD 11/29/17 Naproxen (Naproxen) 500 Mg Tab 500 MG PO BID, #20 TAB 0 Refills Prov: Lan Pérez MD 11/29/17 Disposition: 01 DISCHARGE HOME Condition: Stable Lan Pérez MD Nov 29, 2017 13:56
[2017-11-29] MEDS ORDERED: NAPROXEN 500 MG TAB PO ONE (14:00)
[2017-11-29] MEDS ORDERED: NAPR500T2 PO (14:01)
[2017-11-29] MEDS ORDERED: CYCL10TA PO (14:01)
[2017-11-29 14:23] LABS: BILIRUBIN, URINE NEG (NEG); BLOOD, URINE NEG (NEG); GLUCOSE,URINE NEG (NEG); KETONE, URINE NEG (NEG); MUCUS URINE FEW /lpf (OCC); NITRITE,URINE NEG (NEG); SQUAMOUS EPITHELIAL CELL URINE 10 /hpf (0-5); URINE COLOR YELLOW (YELLW/STRAW); URINE LEUKOCYTE ESTERASE TRACE (NEG)
== END 2017-11-29 14:37 | disposition home or self-care (01) ==
LOC: NEPD 13:27
DX: M54.5 Low back pain (principal); F17.200 Nicotine dependence, unspecified, uncomplicated
CPT/HCPCS: 81001; 84703; 99283